=== PATIENT | female | born 1950 | race Caucasian/White ===

== ENCOUNTER 2022-01-23 10:05 | Outpatient (CLI) | payer OTHER | END 2022-01-23 10:21 | disposition home or self-care (01) | LOC: LAB 10:05 | PROVIDERS: ATTEND Internal Medicine Hematology & Oncology | DX: D50.8 Other iron deficiency anemias (principal); R79.9 Abnormal finding of blood chemistry, unspecified; I10 Essential (primary) hypertension; R74.02 Elevation of levels of lactic acid dehydrogenase [LDH]; K76.89 Other specified diseases of liver; R97.0 Elevated carcinoembryonic antigen [CEA]; R97.8 Other abnormal tumor markers; D68.59 Other primary thrombophilia; D68.52 Prothrombin gene mutation; C56.9 Malignant neoplasm of unspecified ovary; R97.1 Elevated cancer antigen 125 [CA 125]; I82.432 Acute embolism and thrombosis of left popliteal vein ==

== ENCOUNTER 2025-02-12 13:15 | Emergency (ER) | payer OTHER ==
[~2025-02-12] VITALS: Ht 162.6 cm; Wt 90.7 kg
[2025-02-12] MEDS ORDERED: NASAL MIST126 ML (13:55)
[2025-02-12] MEDS ORDERED: SYNTHROID125 MCG (13:55)
[2025-02-12] MEDS ORDERED: ZYRTEC10 M3 PO (13:55)
[2025-02-12] MEDS ORDERED: PEPCID AC20 MG PO (13:56)
[2025-02-12] MEDS ORDERED: KETOROLAC TROMETHAMINE 30 MG VIAL IM STA (14:47)
[2025-02-12] MEDS ORDERED: ORPHENADRINE CITRATE 30 MG/ML AMPUL IM STA (14:48)
[2025-02-12] MEDS ORDERED: KETOROLAC TROMETHAMINE 30 MG VIAL ONE (15:37)
[2025-02-12] MEDS ORDERED: ORPHENADRINE CITRATE 30 MG/ML AMPUL ONE (15:38)
== END 2025-02-12 16:45 | disposition home or self-care (01) ==
LOC: ER 13:16
DX: G89.11 Acute pain due to trauma (principal); M54.89 Other dorsalgia; M54.9 Dorsalgia, unspecified; Z88.8 Allergy status to other drugs, medicaments and biological substances
CPT/HCPCS: 72100; 96372; 99283; J1885; J2360